=== PATIENT | female | born 1965 | race African-American/Black ===

== ENCOUNTER → 2025-02-04 | Day surgery (SDC) | payer MEDICAID ==
[2025-02-02 10:31] LABS: Urine Bacteria None Seen /hpf (None Seen)
[2025-02-02 10:39] LABS: Basophils # (auto) 0 10 ^3/uL (0-0.2); Basophils % (auto) 0.7 % (0.0-2.0); Eosinophils # (auto) 0.2 10 ^3/uL (0-0.8); Eosinophils % (auto) 2.3 % (0.0-7.0); Hematocrit 39.5 % (36.0-46.0); Hemoglobin 13.3 g/dL (12.2-16.2); Lymphocytes # (auto) 2.2 10 ^3/uL (0.4-5.4); Lymphocytes % (auto) 34.1 % (10.0-50.0); Mean Corpuscular Hemoglobin 31.1 pg (28.0-32.0); Mean Corpuscular Hgb Conc. 33.6 g/dL (32.0-36.0); Mean Corpuscular Volume 92.7 fL (80.0-100.0); Monocytes # (auto) 0.5 10 ^3/uL (0-1.3); Neutrophils # (auto) 3.6 10 ^3/uL (1.6-8.6); Neutrophils % (auto) 54.9 % (37.0-80.0); Platelet Count (auto) 293 10^3/uL (140-450); Red Blood Cells 4.26 10^6/uL (4.0-5.20); White Blood Cell 6.6 10^3/uL (4.4-10.8)
[2025-02-02 10:55] LABS: Alanine Aminotransferase 17 U/L (7-40); Albumin 4.5 g/dL (3.2-4.8); Alkaline Phosphatase 97 U/L (46-116); Anion Gap 5 (5-15); Aspartate Aminotransferase 17 U/L (13-40); BUN/Creatinine Ratio 12.5 (10.0-20.0); Bilirubin, Total 0.4 mg/dL (0.2-1.0); Blood Urea Nitrogen 10 mg/dL (9-23); Calcium 10.2 mg/dL (8.7-10.4); Chloride 105 mmol/L (98-107); Glucose 88 mg/dL (74-106); Potassium 4.1 mmol/L (3.5-5.1); Sodium 141 mmol/L (136-145); Total Protein 7.6 g/dL (5.7-8.2)
[2025-02-02 10:56] LABS: Carbon Dioxide 31 mmol/L (20-31)
[2025-02-02 10:59] LABS: INR 0.97 (0.9-1.15); Partial Thromboplastin Time 31.3 SEC (24.5-34.5); Prothrombin Time 10.3 sec (9.3-11.8)
[2025-02-02 11:27] LABS: Urine Blood Negative /uL (Negative); Urine Clarity Clear (Clear); Urine Color Colorless (Yellow); Urine Protein, UAD Negative (Negative); Urine Specific Gravity 1.013 (1.001-1.035); Urine Squamous Epithelial Cell FEW /hpf (<5); Urine Urobilinogen Normal (Negative); Urine WBC 4 /HPF (0-5); Urine pH 6.5 (5.0-9.0)
[~2025-02-04] VITALS: Ht 170.2 cm; Wt 112.0 kg
[~2025-02-04] MED LIST: CHOL62.52 PO; FLUMAZENIL 0.1 MG/ML INJ 10ML MDV IV ONE; GARL400T9; IBUP100S11 GT; METH50006 SL; NALOXONE HCL 0.4 MG/ML VIAL ONE; OMEG120017 PO; POTA-36 PO; SEMA1INJ SC; SIMETHICONE 40 MG/0.6 ML ORAL DROP ONE; ZINC100T5 PO; [UNRECOGNIZED DRUG - CODE] PO; diphenhdrAMINE HCL 50 MG/1 ML VL ONE
[2025-02-04] MEDS: MIDAZOLAM HCL 2MG/2ML 2ml VIAL (1mg/ml) ONE (08:10)
[2025-02-04] MEDS: fentaNYL CITRATE 100 MCG/2 ML VL ONE (08:10)
--- NOTE | 2025-02-04 08:28 | DVHNC2 ---
Procedure - PROCEDURE DATE: FEBRUARY 04, 2025 PROCEDURE PERFORMED BY: Monique Mohan MD REFERRING PROVIDER: [facility] PROCEDURE PERFORMED: 1. COLONOSCOPY WITH MODERATE SEDATION PRE-PROCEDURE DIAGNOSIS: 1. COLON CANCER SCREENING POSTPROCEDURE DIAGNOSIS: 1. Small internal and external hemorrhoids 2. Melanosis coli INDICATIONS FOR PROCEDURE: The patient is a 59-year-old female who presents for outpatient colonoscopy for screening. She also has occasional bright red blood per rectum. MEDICATIONS USED: 4mg of Versed IV and 50mcg of fentanyl IV were given in incremental doses DETAILS OF THE PROCEDURE: Informed consent was obtained after risks, benefits, and alternatives, were discussed at length with the patient. The patient gave consent to the procedure as well as some medication used for sedation. The patient was placed in the left lateral decubitus position, and a digital rectal exam was performed. The digital rectal exam showed internal hemorrhoids and external hemorrhoids. An Olympus variable torsion adult colonoscope was inserted into the rectum and independence to the cecum. The cecum was identified by the ileocecal valve appendiceal orifice. The scope was then withdrawn. [place] bowel prep score of nine was noted. There were no large polyps, masses, strictures, or arteriovenous malformations seen. The patient had melanosis coli throughout the colon. More than 6 minutes withdrawal time was noted. Retroflexion showed internal hemorrhoids. The patient tolerated the procedure well. START TIME: 816 CECUM TIME: 818 END TIME: 825 IMPRESSION: 1. Melanosis coli 2. Internal and external hemorrhoids RECOMMENDATION: 1. High-fiber diet 2. Avoid laxatives 3. follow up in GI clinic 4. Medical management of hemorrhoids 5. Repeat colonoscopy in 10 years unless otherwise indicated by symptoms, family history or findings. I WOULD LIKE TO THANK [facility] FOR THIS REFERRAL MONIQUE MOHAN MD February 04, 2025 08:28
[2025-02-04 08:29] VITALS: TEMP 97.1
[2025-02-04 09:00] VITALS: BP 130/67; PULSE 76; RESP 14; O2SAT 100
== END | disposition home or self-care (01) ==
LOC: GI 07:27
PROVIDERS: ATTEND Specialist
DX: R19.5 Other fecal abnormalities (principal); K63.89 Other specified diseases of intestine; K64.4 Residual hemorrhoidal skin tags; K64.8 Other hemorrhoids; Z98.890 Other specified postprocedural states
CPT/HCPCS: 36415; 45378; 80053; 81001; 85025; 85610; 85730; J2250; J3010